=== PATIENT | male | born 1970 | race Hispanic/Latino ===

== ENCOUNTER 2020-01-05 12:58 | Emergency (ER) | payer OTHER ==
[~2020-01-05] VITALS: Ht 167.6 cm; Wt 90.7 kg
[2020-01-05 13:07] VITALS: BP 154/95
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
[2020-01-05 13:22] VITALS: BP 154/95
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
--- NOTE | 2020-01-05 14:43 | DIREP ---
PROCEDURE:XRAY FOOT MIN 3 VWS-LT COMPARISON:None. INDICATIONS:injury FINDINGS: BONES:There is no visible fracture. JOINTS:No dislocation. SOFT TISSUES:Soft tissue swelling/changes. OTHER:Negative. CONCLUSION: 1. No visible fracture. Dictated by: Krishna Camacho M.D. on 01/05/2020 at 02:41 PM
--- NOTE | 2020-01-05 14:44 | DIREP ---
PROCEDURE:XRAY TIB & FIB 2 VW-LT COMPARISON:None. INDICATIONS:ER 4 no to Covid FINDINGS: BONES:No fracture is seen. The proximal tibia is not completely included on the AP view. JOINTS:Normal. SOFT TISSUES:Normal. OTHER:No additional findings. CONCLUSION:No fracture or other bony abnormality is seen. Dictated by: Efrain Martini M.D. on 01/05/2020 at 02:40 PM
[2020-01-05 15:00] VITALS: BP 134/88
== END 2020-01-05 15:01 | disposition home or self-care (01) ==
LOC: ER 12:58
DX: S90.32XA Contusion of left foot, initial encounter (principal); L03.116 Cellulitis of left lower limb; E11.9 Type 2 diabetes mellitus without complications; W22.8XXA Striking against or struck by other objects, initial encounter; Y93.89 Activity, other specified; Y92.89 Other specified places as the place of occurrence of the external cause; Y99.8 Other external cause status
CPT/HCPCS: 99284; 73590-LT; 73610-LT; 73630-LT